=== PATIENT | female | born 1965 | race Two or more races ===

== ENCOUNTER 2021-05-24 09:31 | Emergency (ER) | payer BC, OTHER ==
[2021-05-24 09:41] VITALS: RESP 20; TEMP 98.5
--- NOTE | 2021-05-24 09:55 | ED ---
Fall HPI - General Chief Complaint: Fall Stated Complaint: Fall/Neck&Back Pain Time Seen by Provider: 05/24/21 09:43 Source: patient, RN notes reviewed Mode of arrival: ambulatory Limitations: no limitations - History of Present Illness Initial Comments: Patient is a 56-year-old female presented to ER for possible. Patient states she fell down last stair while he was wet outside, falling around 2 feet. Patient reports contact to entire left side of body, patient is positive for hitting head during the fall and has neck stiffness with headache. Patient states he was sent here by urgent care because of neck stiffness and head pain. Patient also reports stiffness and pain in lower back. Patient denies any history of back pain or neck pain. Patient denies any loss of consciousness or bleeding with event, no history of blood thinners or head trauma. - Related Data Allergies Allergy/AdvReac Type Severity Reaction Status Date / Time Penicillins Allergy Anaphylaxis Verified 05/24/21 09:41 Review of Systems ROS Statement: Those systems with pertinent positive or pertinent negative responses have been documented in the HPI. ROS Other: All systems not noted in ROS Statement are negative. Past Medical History Past Medical History: Diabetes Mellitus, Hypertension Additional Past Medical History / Comment(s): Vertigo History of Any Multi-Drug Resistant Organisms: None Reported Past Surgical History: Section, Cholecystectomy, Uterine Ablation Additional Past Surgical History / Comment(s): cyst on neck removed Past Psychological History: No Psychological Hx Reported Smoking Status: Never smoker Past Alcohol Use History: Occasional Past Drug Use History: None Reported General Exam Limitations: no limitations General appearance: alert, in no apparent distress Neck exam: Present: tenderness (Cervical) Respiratory exam: Present: normal lung sounds bilaterally. Absent: respiratory distress, wheezes, rales, rhonchi, stridor Extremities exam: Present: tenderness (Musculoskeletal, full range of motion in left sided extremities.) Back exam: Present: tenderness (Lumbar), paraspinal tenderness Neurological exam: Present: alert, oriented X3 Skin exam: Present: warm, dry, intact, normal color. Absent: rash Course Vital Signs 05/24/21 09:38 Temperature 98.5 F Pulse Rate 71 Respiratory 20 Rate Blood Pressure 163/99 O2 Sat by Pulse 99 Oximetry Medical Decision Making - Medical Decision Making CT and x-ray reviewed there are chronic changes no acute changes. Patient has no neurological changes, no red flag symptoms. Patient discharged in stable condition return parameters discussed. Disposition Clinical Impression: Fall, Head contusion, Lumbar back pain, Neck pain Disposition: HOME SELF-CARE Condition: Stable Instructions (If sedation given, give patient instructions): Head Injury (ED) Additional Instructions: Please return to the Emergency Department if symptoms worsen or any other concerns. Is patient prescribed a controlled substance at d/c from ED?: No Referrals: Laz Cristobal MD [Primary Care Provider] - 1-2 days Time of Disposition: 11:48
--- NOTE | 2021-05-24 10:45 | CT ---
EXAMINATION TYPE: CT brain l[facility]idy DATE OF EXAM: 05/24/2021 COMPARISON: NONE HISTORY: fall with blow to left of head, neck pain CT DLP: 1391.5 mGycm. Automated Exposure Control for Dose Reduction was Utilized. TECHNIQUE: CT scan of the head and cervical spine are performed without contrast. FINDINGS: There is no acute intracranial hemorrhage or midline shift identified. Mild ventricular a nd sulcal prominence. Septum pellucidum vergae. Kilpatrick-white matter differentiation maintained. The cathy varium is intact. Nearly completely opacified right frontal sinus. Moderate opacification throughout the ethmoid sinuses bilaterally. Patchy opacification left frontal sinus. Near complete opacification right sphenoid sinus. Globes are intact bilaterally Cervical spine is visualized in its entirety from C1 through upper thoracic levels and demonstrates l oss of normal cervical curvature without evidence of acute fracture or dislocation. Prevertebral sof t tissue appears within normal limits. The C1-C2 articulation is within normal limits on the coronal images. Vertebral body heights are maintained. Moderate disc space narrowing C3-C4 and C4-C5 levels. Moderate to severe disc space narrowing C5-C6 level. Posterior spur disc complexes efface the anteri or thecal sac at these levels. There is heterogeneous normal-sized thyroid gland. Lung apices show no pneumothorax. IMPRESSION: 1. There is no acute fracture or dislocation evident in the cervical spine. 2. No acute intracranial hemorrhage or midline shift is seen.
--- NOTE | 2021-05-24 11:44 | XR ---
Lumbosacral spine HISTORY: Back pain 5 views of the lumbosacral spine There is a slight spinal curvature. No evidence spondylolysis, there is a minimal anterolisthesis gra de 1 L4-5. Some loss of disc height is present at L3-4 greater than L5-S1. Sclerosis is present in th e posterior elements of the lower lumbar spine. Metallic clip present in the paraspinal location on t he frontal view may be anterior, is indeterminate. IMPRESSION: Degenerative disc disease, spondylolisthesis, facet arthropathy, mild spinal curvature an d postsurgical change.
[2021-05-24] MEDS ORDERED: ACET/COD 300 MG/30 MG STARTER PACK 6 TAB BTL PO STA (11:51)
[2021-05-24 12:05] VITALS: BP 142/69; PULSE 78
== END 2021-05-24 12:05 | disposition home or self-care (01) ==
LOC: EC 09:31
DX: S00.83XA Contusion of other part of head, initial encounter (principal); M54.2 Cervicalgia; E11.9 Type 2 diabetes mellitus without complications; M54.50 Low back pain, unspecified; I10 Essential (primary) hypertension; Z88.0 Allergy status to penicillin; Z90.49 Acquired absence of other specified parts of digestive tract; W01.10XA Fall on same level from slipping, tripping and stumbling with subsequent striking against unspecified object, initial encounter
CPT/HCPCS: 70450; 72110; 72125; 99284